=== PATIENT | female | born 1995 | race Caucasian/White ===

== ENCOUNTER 2025-03-22 20:39 | Emergency (ER) | payer BC ==
[2025-03-22] MEDS ORDERED: Meclizine 25 MG Tab PO ONE (20:40)
[2025-03-22] MEDS ORDERED: Ondansetron 4 MG Tab.DIS PO ONE (20:40)
[2025-03-22] MEDS ORDERED: Sodium Chloride 0.9% 1,000 ML IV ONE (21:11)
[2025-03-22] MEDS ORDERED: Ondansetron 4 MG/2 ML SDV IVPUSH ONE (21:11)
[2025-03-22] MEDS ORDERED: Sodium Chloride 0.9% 10 ML Syringe FLUSH PRN (21:11)
[2025-03-22 21:25] LABS: BASOPHILS PERCENT AUTO 0.5 % (0.2-1.5); EOSINOPHILS ABSOLUTE AUTO 0.1 x10-3/uL (0.0-0.8); EOSINOPHILS PERCENT AUTO 1.1 % (0.6-8.1); HEMATOCRIT 38.6 % (34.2-48.2); HEMOGLOBIN 13.2 g/dL (11.4-15.5); LYMPHOCYTES ABSOLUTE AUTO 2.5 x10-3/uL (1.0-4.4); LYMPHOCYTES PERCENT AUTO 30.9 % (18.4-52.1); MEAN CORPUSCULAR HEMOGLOBIN 28.8 pg (23.9-33.9); MEAN CORPUSCULAR HGB CONC 34.1 g/dL (31.9-34.8); MEAN CORPUSCULAR VOLUME 84.6 fL (76.7-100.5); MEAN PLATELET VOLUME 11.1 fL (7.1-12.4); MONOCYTES ABSOLUTE AUTO 0.5 x10-3/uL (0.3-1.0); MONOCYTES PERCENT AUTO 5.9 % (4.4-15.7); NEUTROPHILS PERCENT AUTO 61.6 % (30.8-76.2); PLATELET COUNT,PLT 145 x10(3)uL (151-488); RED BLOOD CELL COUNT 4.57 x10(6)uL (3.60-5.20); RED CELL DISTRIBUTION WIDTH 13.7 % (12.3-16.5); WHITE BLOOD CELL COUNT,WBC 8.2 x10-3/uL (3.0-10.3)
[2025-03-22 21:30] LABS: BLOOD UREA NITROGEN,BUN 13 mg/dL (7-18); CALCIUM 9.5 mg/dL (8.6-10.2); CARBON DIOXIDE,CO2 31 mmol/L (21-32); CHLORIDE,CL 101 mmol/L (100-110); EST CRCL DRUG DOSING (CG) 74.69 mL/min; ESTIMATED GFR 78 mL/min (>60); GLUCOSE RANDOM 136 mg/dL (80-116); POTASSIUM,K 4.3 mmol/L (3.5-5.3); SODIUM,NA 138 mmol/L (135-145)
[2025-03-22 21:35] LABS: A/G RATIO 1.2; ALANINE AMINOTRANSFERASE,ALT 16 U/L (12-36); ALKALINE PHOSPHATASE 78 IU/L (56-112); ASPARTATE AMNIOTRANSFERASE,AST 14 IU/L (5-25); BILIRUBIN TOTAL 0.2 mg/dL (0.1-1.3); MAGNESIUM 1.8 mg/dL (1.8-2.5); PROTEIN TOTAL,TP 7.4 g/dL (6.0-8.0)
[2025-03-22 22:18] LABS: APPEARANCE,URINE CLEAR (CLEAR); BILIRUBIN,URINE NEGATIVE (NEGATIVE); COLOR,URINE YELLOW (YELLOW); GLUCOSE,URINE NORMAL (NORMAL); KETONES,URINE NEGATIVE (NEGATIVE); LEUKOCYTE ESTERASE,URINE NEGATIVE (NEGATIVE); NITRITE,URINE NEGATIVE (NEGATIVE); OCCULT BLOOD,URINE NEGATIVE (NEGATIVE); PH,URINE 6.5 (5.0-6.5); PROTEIN,URINE NEGATIVE (NEGATIVE); UROBILINOGEN,URINE NORMAL (NEGATIVE)
[2025-03-22] MEDS: Meclizine 25 MG Tab PO ONE (22:18)
[2025-03-22] MEDS: Ondansetron 4 MG Tab.DIS PO ONE (22:18)
== END 2025-03-22 23:31 | disposition home or self-care (01) ==
LOC: FB.ED 20:39
DX: R11.2 Nausea with vomiting, unspecified (principal); R42 Dizziness and giddiness; R19.7 Diarrhea, unspecified; Z88.2 Allergy status to sulfonamides
CPT/HCPCS: 36415; 80053; 81003; 81025; 83735; 85025; 86140; 93005; 99284; A9270-GY; Q0162